=== PATIENT | female | born 2000 | race Caucasian/White ===

== ENCOUNTER 2024-03-30 14:19 | Emergency (ER) | payer MEDICAID ==
[~2024-03-30] VITALS: Ht 160 cm; Wt 65.5 kg
[2024-03-30 15:01] LABS: URINE HCG NEGATIVE (NEG)
[2024-03-30 15:03] LABS: BILIRUBIN,URINE NEGATIVE (Neg); CLARITY,URINE CLOUDY (Clear); COLOR,URINE YELLOW (Yellow); GLUCOSE, URINE NEGATIVE (Neg); KETONES,URINE 15 mg/dl (Neg); LEUKOCYTE ESTERASE ,URINE MODERATE (Neg); NITRITES, URINE POSITIVE (Neg); OCCULT BLOOD,URINE NEGATIVE (Neg); PROTEIN,URINE TRACE mg/dl (Neg); UROBILINOGEN,URINE 0.2 E.U/dL (0.2-1.0)
[2024-03-30 15:07] LABS: UA COLLECTION TYPE CLN CATCH MIDSTREAM
[2024-03-30 15:10] LABS: BACTERIA,URINE 4+ /HPF (Neg); RBC,URINE 0-2 /HPF (0-2); SQUAMOUS EPITHELIAL CELL,UR FEW /LPF (FEW); TRANSITIONAL EPI CELLS,URINE FEW /HPF; WBC,URINE TNTC /HPF (0-4)
[2024-03-30] MEDS: CefTRIAXone 500MG IM Kit w/LIDOcaine IM ONE (15:45)
[2024-03-30] MEDS ORDERED: LEVO-65 PO (16:07)
[2024-03-30 16:20] VITALS: BP 132/76; PULSE 74; RESP 16; TEMP 97.8; O2SAT 97
== END 2024-03-30 16:21 | disposition home or self-care (01) ==
LOC: ER 14:20
DX: N39.0 Urinary tract infection, site not specified (principal); R30.0 Dysuria
CPT/HCPCS: 36415; 81001; 81025; 87088; 87491; 87591; 96372; 99283; J0696; 87077; 87186

== ENCOUNTER 2025-01-24 12:04 | Emergency (ER) | payer MEDICAID ==
[~2025-01-24] VITALS: Ht 160 cm; Wt 56.0 kg
[2025-01-24 12:07] VITALS: BP 150/72; PULSE 83; RESP 18; TEMP 98.3; O2SAT 100
--- NOTE | 2025-01-24 13:55 | Physician Documentation ---
History of Present Illness ~ Chief Complaint: Urinary Symptoms Stated Complaint: UTI Time Seen by MD: 12:31 HPI Patient is seen today with complaints of dysuria with urinary urgency and frequency. Patient states he did just have her urine checked a few days ago and [facility] states he just recently call the office states they did not do a urine culture but also was just told that she did not have a urinary tract infection in his likely. Patient denies any flank pain or fevers. He denies any vaginal discharge and does admit to being sexually active with her boyfriend. Medication Reconciliation Allergies: Coded Allergies: No Known Allergies (Unverified , 01/24/25) Review of Systems Constitutional: Denies: chills, fever, weakness Eyes: Denies: pain, blurred vision ENT: Denies: ear pain, nose pain, throat pain, mouth pain Respiratory: Denies: cough, shortness of breath Cardiovascular: Denies: chest pain, palpitations Gastrointestinal: Denies: abdominal pain, nausea, vomiting Genitourinary: Denies: burning, dysuria Female Genitalia: Denies: vaginal discharge, pelvic pain Neurological: Denies: headache, dizziness Musculoskeletal: Denies: pain, swelling Integumentary: Denies: rash, lesions Allergic/Immunologic: Denies: hives, itching Hematologic/Lymphatic: Denies: no symptoms reported Psychiatric: Denies: depression, anxiety Physical Exam Vital Signs: Temperature: 98.3, Source: Temporal, Heart Rate: 83, Respiratory Rate: 18, BP: 150/72, Pulse Oximetry: 100, Weight: 56.000 Oxygen Flow Rate: 0 Physical Exam General: Awake and Alert, no acute distress. HEENT: Conjunctiva pink, Sclera clear, Mucus Membranes moist. Neck: Supple without masses and tenderness. Resp: Unlabored. Lungs clear to auscultation bilaterally. Heart: Regular Rate and rhythm, normal S1 and S2 without murmur, rub or gallop. Abdomen: Soft and non tender no organomegaly Extremities: No cyanosis,clubbing or edema. Skin: Warm and Dry. Progress Results/Orders Results/Orders Completed Orders - TRENTON ZAVALA PAC Hcg, Ur Ql (01/24/25 13:34) Ua W/Microscopic, Cult If Ind (01/24/25 12:20) Vital Signs 01/24/25 12:07 Temp 98.3 Pulse 83 Resp 18 B/P (MAP) 150/72 Pulse Ox 100 O2 Flow Rate 0 Laboratory Tests Test 01/24/25 12:20 Urine Specimen Description Cln catch midstream Urine Color Yellow Urine Clarity Slightly cloudy Urine pH 6.0 Urine Specific [place] 1.025 Urine Protein 30 H Urine Glucose (UA) Negative Urine Ketones Trace H Urine Occult Blood Large H Urine Nitrite Negative Urine Bilirubin Negative Urine Urobilinogen 0.2 Urine Leukocyte Esterase Negative Urine RBC 10-20 Urine WBC 0-4 Urine Squamous Epithelial Cells Many Urine Transitional Epithelial Cells Few Urine Renal Cells Few Urine Bacteria Few Urine Culture Indicated Not ind Volume Urine Centrifuged 10 ml Urine HCG, Qualitative Negative Urine Comment Medical Decision Making Additional information obtaine: N/A Findings Patient is seen today with complaints of dysuria with urinary urgency and frequency. Patient states he did just have her urine checked a few days ago and [facility] states he just recently call the office states they did not do a urine culture but also was just told that she did not have a urinary tract infection in his likely. Patient denies any flank pain or fevers. He denies any vaginal discharge and does admit to being sexually active with her boyfriend. Patient did have urinalysis done in the ED today that showed positive for blood and ketones but negative for leukocytes or nitrites and culture was not indicated and urine hCG was negative and culture was not performed today. Patient will follow up with Gynecology for further eval and treatment. Urinary Diff Dx:Considerations: Include: Pyelonephritis, Urinary Obstruction, Urolithiasis, Urinary retention, UTI, Vaginitis Genital Diff Dx:Considerations: Unlikely: -Complete, - Incomplete, -Inevitable, Ablortion-Missed, -Threatened, Abruptio placentae, Bartholin abscess, Bartholin cyst, Blood loss anemia, Constipation, Cervicitis, Dsymenorrhea, Ectopic , Foreign body, Hormonal, Hidradenitis suppurativa, Intrauterine , Menorrhagia, Menometrorrhagia, Menstrual bleeding, Myomatous uterus, Perianal abscess, Physiologic discharge, Pinworms, PID, Placenta previa, , Precipitous Hct, Trauma, UTI, Vaginitis(osis)-Atrophic, Vaginitis, Vaginitis(osis)-Bacterial, Vaginitis(osis)- Candidal, Vaginitis(osis)-Contact, Vaginitis(osis)-Herpes, Vaginitis(osis)- Trich., Other Departure Disposition: HOME / SELF CARE / HOMELESS Impression: Primary Impression: Dysuria Condition: Stable Discharge Instructions: Dysuria Additional Instructions: Patient did have urinalysis done in the ED today that showed positive for blood and ketones but negative for leukocytes or nitrites and culture was not indicated and urine hCG was negative and culture was not performed today. Patient will follow up with Gynecology for further eval and treatment. Referrals: NO PRIMARY CARE PROVIDER (PCP) Signature Scribe Signature: No scribe Attestation: No scribe TRENTON ZAVALA PAC Jan 24, 2025 13:55
[2025-01-24 14:00] LABS: URINE HCG NEGATIVE (NEG)
[2025-01-24 14:05] LABS: LEUKOCYTE ESTERASE ,URINE NEGATIVE (Neg); NITRITES, URINE NEGATIVE (Neg); OCCULT BLOOD,URINE LARGE (Neg)
[2025-01-24 14:07] LABS: UA COLLECTION TYPE CLN CATCH MIDSTREAM
[2025-01-24 14:12] LABS: RENAL CELLS, URINE FEW /HPF; SQUAMOUS EPITHELIAL CELL,UR MANY /LPF (FEW)
== END 2025-01-24 15:01 | disposition home or self-care (01) ==
LOC: ER 12:05
DX: R30.0 Dysuria (principal)
CPT/HCPCS: 81001; 81025; 99283